=== PATIENT | female | born 1980 | race American Indian/Alaskan Native ===

== ENCOUNTER 2016-11-24 05:56 | Day surgery (SDC) | payer OTHER ==
--- NOTE | 2016-11-24 07:30 | Anesthesia Consultation ---
Anesthesia Consult and Med Hx Date of service: 11/24/16 - Airway Anesthetic Teeth Evaluation: Good ROM Head & Neck: Adequate Mental/Hyoid Distance: Adequate Mallampati Class: Class III Intubation Access Assessment: Possibly Difficult - Pre-Operative Health Status ASA Pre-Surgery Classification: ASA3 Proposed Anesthetic Plan: MAC - Pulmonary Hx Smoking: Yes (STOPPED 2012) Hx Sleep Apnea: Yes (CPAP) - Cardiovascular System Hx Hypertension: Yes Hx Cardia Arrhythmia: Yes (h/o atrial fibrillation) - Endocrine Hx Non-Insulin Dependent Diabetes: Yes (prediabetic) - Other Systems Hx Obesity: Yes (Morbid, BMI 52.5)
--- NOTE | 2016-11-24 07:30 | Anesthesia Day of Surgery ---
Anesthesia Day of Surgery - Day of Surgery Patient Examined: Yes Patient H&P Reviewed: Yes Patient is NPO: Yes
[2016-11-24] MEDS ORDERED: DIPRIVAN 10 MG/ML IV ONE ×2 (07:39)
--- NOTE | 2016-11-24 07:56 | Discharge Summary ---
Providers - Providers Date of discharge: 11/24/16 Attending physician: SUMA LOGAN Hospitalization Condition: Good Procedures: egd Disposition: DC- TO HOME OR SELFCARE Core Measure Documentation - Palliative Care Palliative Care/ Comfort Measures: Not Applicable - Core Measures Any of the following diagnoses?: none Exam - Physical Exam Narrative exam: unchanged from pre-op - Constitutional Vitals: Temp Pulse Resp BP Pulse Ox 98.4 F 76 17 111/58 99 11/24/16 07:33 11/24/16 07:33 11/24/16 07:33 11/24/16 07:33 11/24/16 07:33 Plan Activity: no restrictions Weight Bearing Status: Full Weight Bearing Diet: regular
--- NOTE | 2016-11-24 07:59 | Operative Report ---
Operative Report Operative Report: OPERATIVE REPORT - EGD DATE 11/24/16 SURGERY: Upper endoscopy. SURGEON: Nikky Barth M.D. ELECTRONIC MUSICAL INSTRUMENT REPAIRER: n/a PRE OP DX: dyspepsia POST OP DX:hiatal hernia TYPE OF ANESTHESIA: MAC. ESTIMATED BLOOD LOSS: None. COMPLICATIONS: None. SPECIMENS REMOVED: None. FINDINGS: 1. Small hiatal hernia. 2. Otherwise, normal esophagus, stomach and first portion of duodenum. INDICATIONS:INDICATION FOR PROCEDURE: Patient is a 36-year-old female with a long history of morbid obesity and has dyspepsia, here today looking for an pathology that would prohibit her upcoming bariatric surgery. She is planned to have a weight loss procedure and is here for preoperative planning EGD. PROCEDURE DETAILS: After consent was reviewed, patient was taken back to the operating room where patient was placed in the left lateral decubitus position and a bite block was placed in the mouth. After a time-out was called, MAC anesthesia was initiated. I then passed the endoscope into her oropharynx, into her esophagus, visualized the entire esophagus, which was all within normal limits. I then visualized the stomach and the first portion of the duodenum and there were no abnormalities I could clearly visualize. I then retroflexed the scope in the stomach and visualized the hiatus and I could see a small hiatal hernia. I then desufflated the stomach and removed the endoscope. Patient tolerated procedure well and was transferred to recovery room in good and stable condition.
[2016-11-24] MEDS ORDERED: NACL 0.9% 1000 ML 1,000 ML IV SCH (08:00)
[2016-11-24 08:40] VITALS: BP 118/57
--- NOTE | 2016-11-24 09:07 | Post Anesthesia Evaluation ---
- Post Anesthesia Evaluation Patient Participated: Yes Airway Patent: Yes Stable Respiratory Function: Yes Nausea/Vomiting: No Temp > 96.8F: Yes Pain Manageable: Yes Adequeate Hydration: Yes Anesthesia Complications: No Block Receding Appropriately: Not Applicable Patient on Ventilator: No
== END 2016-11-24 05:57 | disposition home or self-care (01) ==
LOC: GIO 05:56
PROVIDERS: ATTEND Surgery
DX: K44.9 Diaphragmatic hernia without obstruction or gangrene (principal); G47.30 Sleep apnea, unspecified; I10 Essential (primary) hypertension; I48.2 Chronic atrial fibrillation; D64.9 Anemia, unspecified; F32.9 Major depressive disorder, single episode, unspecified; E66.01 Morbid (severe) obesity due to excess calories; Z87.891 Personal history of nicotine dependence; Z68.43 Body mass index [BMI] 50.0-59.9, adult; Z72.89 Other problems related to lifestyle; Z98.51 Tubal ligation status; K08.409 Partial loss of teeth, unspecified cause, unspecified class; Z98.890 Other specified postprocedural states; Z79.899 Other long term (current) drug therapy; Z91.09 Other allergy status, other than to drugs and biological substances; Z82.49 Family history of ischemic heart disease and other diseases of the circulatory system
CPT/HCPCS: 43235; 81025; J2704; J7030

== ENCOUNTER 2016-11-28 07:30 | Inpatient (IN) | payer OTHER ==
[2016-11-28] MEDS ORDERED: PEPCID IV NR (08:00)
[2016-11-28] MEDS ORDERED: TRANSDERM-SCOP TD NR (08:00)
[2016-11-28] MEDS ORDERED: VERSED IV NR (08:00)
[2016-11-28] MEDS ORDERED: NACL 0.9% 1000 ML 1,000 ML IV SCH (08:00)
[2016-11-28] MEDS ORDERED: DILAUDID IV PRN ×2 (09:43→13:19)
[2016-11-28] MEDS ORDERED: APRESOLINE IV PRN (09:43)
[2016-11-28] MEDS ORDERED: REGLAN IV PRN (09:43)
[2016-11-28] MEDS ORDERED: NORCO PO PRN (09:43)
[2016-11-28] MEDS ORDERED: MORPHINE IV PRN (09:43)
[2016-11-28] MEDS ORDERED: DILTIAZEM 300 MG PO SCH (10:00)
[2016-11-28] MEDS ORDERED: LACTATED RINGERS 1,000 ML IV SCH (10:00)
[2016-11-28] MEDS ORDERED: LOVENOX SUB-Q SCH (10:00)
[2016-11-28] MEDS ORDERED: ANCEF/STERILE WATER 2 GM/20 ML 2 GM/20 ML SYRINGE IV NR (10:00)
[2016-11-28] MEDS ORDERED: HYDROCHLOROTHIAZIDE PO SCH (10:00)
[2016-11-28] MEDS ORDERED: TRIAMTERENE PO SCH (10:00)
[2016-11-28] MEDS ORDERED: FLAGYL 500 MG/100 ML 500 MG/100 ML BAG IV NR (10:00)
[2016-11-28] MEDS ORDERED: LOVENOX SUB-Q NR (11:00)
--- NOTE | 2016-11-28 13:24 | Anesthesia Day of Surgery ---
Anesthesia Day of Surgery - Day of Surgery Patient Examined: Yes Patient H&P Reviewed: Yes Patient is NPO: Yes
--- NOTE | 2016-11-28 13:24 | Anesthesia Consultation ---
Anesthesia Consult and Med Hx Date of service: 11/28/16 - Airway Anesthetic Teeth Evaluation: Good ROM Head & Neck: Adequate Mental/Hyoid Distance: Adequate Mallampati Class: Class II Intubation Access Assessment: Probably Good - Pulmonary Exam CTA: Yes - Cardiac Exam Cardiac Exam: RRR - Pre-Operative Health Status ASA Pre-Surgery Classification: ASA3 Proposed Anesthetic Plan: MAC - Pulmonary Hx Smoking: Yes (STOPPED 2012, SMOKED 1 PACK PER WEEK) Hx Sleep Apnea: Yes (CPAP) - Cardiovascular System Hx Hypertension: Yes Hx Cardia Arrhythmia: Yes (h/o atrial fibrillation) - Endocrine Hx Non-Insulin Dependent Diabetes: Yes (prediabetic) - Other Systems Hx Obesity: Yes (Morbid, BMI > 40)
[2016-11-28] MEDS ORDERED: SUBLIMAZE ONE (13:52)
[2016-11-28] MEDS ORDERED: DIPRIVAN 10 MG/ML IV ONE (13:52)
[2016-11-28] MEDS ORDERED: CARDIZEM CD PO SCH (14:00)
[2016-11-28] MEDS ORDERED: MAXZIDE-25 PO SCH (14:00)
[2016-11-28 14:14] LABS: Basophils % (Auto) 0.5 % (0.0-1.8); Eosinophils % (Auto) 0.4 % (0.0-4.3); Hematocrit 40.5 % (30.3-42.9); Hemoglobin 13.5 gm/dl (10.1-14.3); Mean Corpuscular HGB Conc 33 % (30-34); Mean Corpuscular Hemoglobin 27 pg (28-32); Mean Corpuscular Volume 80 fl (79-97); Platelet Count 311 K/mm3 (140-440); Red Blood Count 5.06 M/mm3 (3.65-5.03); Red Cell Distribution Width 14.7 % (13.2-15.2); White Blood Count 11.5 K/mm3 (4.5-11.0)
[2016-11-28 14:18] LABS: Bilirubin,Urine NEG (Negative); Blood,Urine LG (Negative); Ketones,Urine TR mg/dL (Negative); Leukocyte Esterase,Urine SM (Negative); Mucus,Urine 2+ /HPF; Nitrite,Urine NEG (Negative)
[2016-11-28 14:21] LABS: RBC,Urine > 182.0 /HPF (0.0-6.0)
[2016-11-28 14:24] LABS: Anion Gap 19 mmol/L; Blood Urea Nitrogen 10 mg/dL (7-17); Calcium 9.1 mg/dL (8.4-10.2); Carbon Dioxide 26 mmol/L (22-30); Chloride 98.4 mmol/L (98-107); Glucose 75 mg/dL (65-100); Potassium 3.2 mmol/L (3.6-5.0); Sodium 140 mmol/L (137-145)
[2016-11-28] MEDS ORDERED: XYLOCAINE MPF 2% ONE (14:24)
[2016-11-28] MEDS ORDERED: XYLOCAINE 1% 20 mL ONE (14:28)
[2016-11-28] MEDS ORDERED: MARCAINE-EPI 0.5%-1:200,000 INFILTRATI ONE ×2 (14:28→15:28)
[2016-11-28] MEDS ORDERED: DECADRON ONE (15:12)
[2016-11-28] MEDS ORDERED: ROBINUL ONE ×2 (15:17→15:58)
[2016-11-28] MEDS ORDERED: NEOSTIGMINE ONE (15:17)
[2016-11-28] MEDS ORDERED: ZOFRAN ONE (15:21)
[2016-11-28] MEDS ORDERED: XYLOCAINE 1% 20 mL INFILTRATI ONE (15:28)
[2016-11-28] MEDS ORDERED: NACL 0.9% IR ONE (15:28)
[2016-11-28] MEDS ORDERED: DILAUDID ONE (15:38)
[2016-11-28] MEDS ORDERED: NACL 0.9% 1000 ML 1,000 ML ONE (15:45)
--- NOTE | 2016-11-28 16:05 | Operative Report ---
Operative Report Operative Report: Operative Report DATE OF PROCEDURE: 11/28/16 PREOPERATIVE DIAGNOSES: Morbid obesity, hiatal hernia POSTOPERATIVE DIAGNOSES: 1.same as pre-op SURGEON: Nikky Barth M.D. POLICE OFFICER CRIME PREVENTION: Andrew Bacon CSA PROCEDURE: 1. laparoscopic sleeve gastrectomy 2. laparoscopic hiatal hernia repair ANESTHESIA: General. ESTIMATED BLOOD LOSS: <5 mL. COMPLICATIONS: None. SPECIMEN: Partial gastrectomy. FINDINGS: 1. hiatal hernia INDICATION FOR PROCEDURE: Patient is a 36-year-old female with a long history of morbid obesity. She has tried multiple efforts at weight loss without dedicated intermodal truck driver success. She is here today for sleeve gastrectomy. PROCEDURE IN DETAIL: After consent was reviewed, patient was taken back to the operating room, where patient was placed supine on the bed with both arms out. The patient's legs were doubly strapped to the bed. Patient had a foot board in place. Patient had a body warmer placed by anesthesia. Patient was then prepped and draped in normal sterile surgical fashion. After a time-out was called, I made a stab incision in the LUQ and placed a Veress needle through this incision and insufflated the abdomen to 18 mmHg pressure. I then counted down a handsbreadth below the xiphoid process in the midline and slightly left lateral injected local anesthetic and made about 1.5 cm transverse incision. I then used a 5-mm Optiview trocar to enter into the abdomen. I then placed a 45- degree scope through this port and inspected the abdomen. There was no injury on entry of the abdomen. I then placed two 5-mm ports in the right upper quadrant, one along the anterior axillary line and 1 subxiphoid below the costovertebral angle. I then placed a 15-mm port about a handsbreadth left lateral and inferior to my anterior axillary port. I then placed left upper quadrant port along the anterior axillary line in a similar fashion. I then placed the liver retractor through the subxiphoid port and placed the patient in full reverse Trendelenburg. The right and left crura were skeletonized accentuating a small hiatal hernia. An anterior cruraplasty was perfromed with a figure-of-8 stitch using surgidac suture to reapproximate the crura. The stomach and distal 2cm of esophagus were resting in the abdomen without tension. I then identified the pylorus and then counted off 6cm from the pylorus. I then used a LigaSure cutting device to enter into the lesser sac. At that point and then I took down the short gastrics all the way up to the left radha. Then I had anesthesia pass down a 36-Georgian bougie along the lesser curvature of the stomach. I made sure everything else was out of the abdomen except the bougie. I then created my gastric sleeve using a 60-mm laparoscopic stapler. . The sleeve looked good without any twisting or torsion. I then had anesthesia to remove the bougie. Hemostasis was obtained along the staple line. I then used Tiseel along the entirety of the staple line and some on the liver. I then removed liver grasper and took it off the field. I then removed the stomach through the 15-mm port. I then closed that fascia with a #1 PDS in a [id number] fashion using a Joel-Rubén. I then desufflated the abdomen and then removed all port sites. I then closed the incisions with 4-0 Monocryl in subcuticular fashion. I then dressed the wounds with Dermabond. Patient tolerated the procedure well and was transferred to recovery room in good and stable condition.
[2016-11-28] MEDS: TORADOL IV SCH ×2 (16:51→22:39)
[2016-11-28] MEDS: MYLICON PO PRN (17:35)
--- NOTE | 2016-11-28 19:00 | Admit Criteria Form ---
Admission Criteria Documentation: AMBULATORY SURGERY EXCEPTION CRITERIA Ambulatory Surgery Exception Criteria ( Place 'X' for any and all applicable criteria): Surgery or procedure performed on ambulatory basis may require inpatient stay for[A] ANY ONE of the following(1)(2)(3)(4)(5)(6)(7)(8)(9): [X] I. A preoperative situation, condition, or finding that warrants inpatient stay as indicated by ANY ONE of the following: [] a) Inpatient care needed because of severity of a disease or condition rather than the surgery (eg, severe cardiac or respiratory disease, severe infection) (15) (16 ) (17) (18) [] b) Emergent procedure (eg, angioplasty for acute ischemia)(19) [] c) Complex surgical approach or situation as indicated by ANY ONE of the following(3): [] i) Open approach needed instead of usual endoscopic, transcatheter, or other less invasive procedure [] ii) Difficult approach because of previous operation [] iii) Airway monitoring required after open neck procedures(20)(21) [] iv) Large mass requiring unusually extensive dissection [] v) Additional complicating feature requiring inpatient care (eg, drain management)(22(23): [X] d) Major surgery in a pt with high anesthetic risk as indicated by ANY ONE of the following (2)(3)(5)(7)(8): [X] i) ASA risk class III or higher (severe systemic disease impairing function) [D] [] ii) Advanced age (eg, older than 85 years)(14)(24) [] iii) Symptomatic heart failure(25) [] iv) Symptomatic asthma or COPD(8)(21) [] v) Morbid obesity with hemodynamic or respiratory problems(20)( 21)(26)(27) [] vi) Obstructive sleep apnea(20)(21) [] vii) Former premature infants who are younger than 60 weeks [] viii) High risk for severe postoperative abnormalities (eg, severe postoperative hypocalcemia after parathyroidectomy for severe hyperparathyroidism)(27)( 28) [] ix) Unstable angina(25) [] e) Drug-related risk requiring inpatient stay as indicated by ANY ONE of the following(5)(10)(14)(32)(33) [] i) Procedure requires discontinuing drugs or other therapy (eg , antiarrhythmic medication, antiseizure medication), which necessitates inpatient observation or treatment.(18)(31) [] ii) Major surgery and high risk drug use as indicated by ANY ONE of the following: [] 1) Active abuse of cocaine or similar drug [] 2) Monoamine oxidase inhibitor use [] 3) Other drug identified as posing risk [] f) Inadequate outpatient care situation as indicated by ANY ONE of the following(5)(10)(14)(32)(33) [] i) Patient lives remote from medical facility and procedure has urgent complication potential, and temporary nearby residence cannot be arranged [] ii) Patient will have postprocedure incapacitation and inadequate assistance at home, or alternative level of care cannot be arranged. [] iii) Patient will have long general anesthesia or procedure side effect resolution time, and competent person to stay with patient on first postoperative night at home or alternative level of care cannot be arranged. []iv) Other inadequate outpatient situation that cannot be handled by other means [] II. A perioperative event, condition, or finding that warrants inpatient stay as indicated by ANY ONE of the following (1)(2)(3): [] a) Inadequate physiologic recovery: cardiovascular, respiratory, or hemodynamic status not normal or near preoperative baseline(18) [] b) Hemodynamic instability [] c) Patient not alert with near normal or baseline mental status [] d) Temperature not normal or as expected and not appropriate for outpatient treatment of condition [] e) Ambulatory or appropriate activity level status not yet achieved post procedure [E](34)(35)(36) [] f) Operative site not appropriate (eg, unexpected or excessive drainage or bleeding) [] g) Postoperative effects not resolved or adequately managed (eg, significant pain or vomiting not appropriate for outpatient or next level of care)(10)(12) [] h) Complicating features requiring inpatient care as indicated by ANY ONE of the following(37): [] i) Severe complications of procedure (eg, bowel injury, airway compromise, vascular injury,severe hemorrhage) [] ii) Extensive (eg, dissection far beyond usual scope of procedure ) or prolonged (eg, 120 minutes beyond usual) surgery needed requiring inpatient postoperative care [] iii) Conversion to an open or complex procedure that requires inpatient care (eg, open vs laparoscopic cholecystectomy, abdominal vs vaginal hysterectomy)(38) [] iv) Comorbid condition or test result identified during or post procedure that requires inpatient care (7) [] v) Malignant hyperthermia(30) [] vi) Other complicating feature requiring inpatient care(22)(23) Inpatient stay may be needed until ALL of the following are present (1)(2)(3)(4) (5)(6)(10)(14)(33)(40): []a) Physiologic recovery: cardiovascular, respiratory, and hemodynamic status normal or near preoperative baseline []b) Hemodynamic stability []c) Patient alert, with near normal or baseline mental status []d) Temperature appropriate: patient afebrile or temperature appropriate for outpt treatment of condition []e) Activity level appropriate: ambulatory or appropriate activity level post procedure []f) Operative site appropriate as indicated by ALL of the following: []i) Site dry or with expected drainage []ii) Any blood noted is as expected for procedure. []g) Postoperative effects resolved or managed as indicated by ALL of the following: []i) Pain management appropriate for outpatient (or next level of) care(10) []ii) Minimal nausea and vomiting: if present, successfully treated with oral medication(12) []iii) Headache, dizziness, or drowsiness (if present) are mild. []h) Voiding status acceptable as indicated by ANY ONE of the following: []i) Voiding spontaneously []ii) No voiding but instructions given for follow-up in 6 to 8 hours []iii) Urinary catheter in place, and instructions given for follow-up []i) Complicating features requiring inpatient care manageable at a lower level of care(37) []j) Comorbid conditions manageable at a lower level of care(37) The original [employer] content created by [employer] has been revised. The portions of the content which have been revised are identified through the use of italic text or in bold, and [facility] [employer] (acquired by [employer] has neither reviewed nor approved the modified material. All other unmodified content is copyright [employer]. Please see references footnoted in the original [employer] edition 2016 Admission Criteria Met: Yes
[2016-11-28] MEDS: ANCEF/NS 1 GM/50 ML 1 GM/50 ML BAG IV SCH (20:42)
[2016-11-28] MEDS: ZOFRAN IV PRN (20:43)
[2016-11-28] MEDS: FLAGYL 500 MG/100 ML 500 MG/100 ML BAG IV SCH (21:51)
[2016-11-29] MEDS: TORADOL IV SCH ×3 (03:32→10:02)
[2016-11-29] MEDS: ANCEF/NS 1 GM/50 ML 1 GM/50 ML BAG IV SCH (03:37)
[2016-11-29] MEDS: ZOFRAN IV PRN (03:41)
[2016-11-29 03:54] LABS: Hematocrit 39.2 % (30.3-42.9); Hemoglobin 13.3 gm/dl (10.1-14.3); Mean Corpuscular HGB Conc 34 % (30-34); Mean Corpuscular Hemoglobin 28 pg (28-32); Mean Corpuscular Volume 81 fl (79-97); Platelet Count 286 K/mm3 (140-440); Red Blood Count 4.82 M/mm3 (3.65-5.03); Red Cell Distribution Width 15.3 % (13.2-15.2); White Blood Count 10.4 K/mm3 (4.5-11.0)
[2016-11-29 03:57] LABS: Basophils % (Auto) 1.3 % (0.0-1.8); Eosinophils % (Auto) 0.8 % (0.0-4.3)
[2016-11-29 04:12] LABS: Albumin 3.7 g/dL (3.9-5); Alkaline Phosphatase 74 units/L (35-129); Anion Gap 23 mmol/L; BUN/Creatinine Ratio 15.71; Blood Urea Nitrogen 11 mg/dL (7-17); Calcium 8.8 mg/dL (8.4-10.2); Carbon Dioxide 20 mmol/L (22-30); Chloride 97.8 mmol/L (98-107); Glucose 131 mg/dL (65-100); Potassium 4.4 mmol/L (3.6-5.0); Sodium 136 mmol/L (137-145); Total Protein 7.5 g/dL (6.3-8.2)
[2016-11-29 04:26] LABS: Alanine Aminotransferase 26 units/L (7-56)
[2016-11-29 08:57] VITALS: BP 116/69
[2016-11-29] MEDS: MYLICON PO PRN (09:52)
[2016-11-29] MEDS: FLAGYL 500 MG/100 ML 500 MG/100 ML BAG IV SCH (09:55)
--- NOTE | 2016-11-29 17:16 | Discharge Summary ---
Providers - Providers Date of Admission: 11/28/16 09:20 Date of discharge: 11/29/16 Attending physician: SUMA LOGAN Primary care physician: MEDICAL IMAGING TECHNOLOGIST Hospitalization Condition: Good Hospital course: 36 F admitted to hospital for lap sleeve gastrectomy and hiatal hernia repair. She underwent surgery without complications.She did well post op. On POD 1 she tolerated liquids and her pain was controlled. Prior to discharge she denies vomiting. Disposition: DC-01 TO HOME OR SELFCARE Core Measure Documentation - Palliative Care Palliative Care/ Comfort Measures: Not Applicable - Core Measures Any of the following diagnoses?: none Exam - Physical Exam Narrative exam: VSS Gen: A+Ox3 CARdio: RRR Lungs CTA BL Abd: soft obese, tender at incision sites, incision sites cdi. ext: no c/c/e - Constitutional Vitals: Temp Pulse Resp BP Pulse Ox 98.1 F 54 L 20 116/69 97 11/29/16 08:55 11/29/16 08:55 11/29/16 10:21 11/29/16 08:55 11/29/16 08:55 Plan Activity: other (no lifting >15lbs for 6 weeks ) Diet: other (clears, no carb) Follow up with: PRIMARY CARE, [Primary Care Provider] - 7 Days
== END 2016-11-29 14:23 | disposition home or self-care (01) | DRG 327 ==
LOC: 3A 09:20 → 2B-SURG 17:03
PROVIDERS: ADMIT Surgery; ATTEND Surgery
PROC: 0DB64Z3 Excision of Stomach, Percutaneous Endoscopic Approach, Vertical (ICD-10-PCS; principal; 2016-11-28)
PROC: 0BQS4ZZ (ICD-10-PCS; 2016-11-28)
PROC: 0BQR4ZZ (ICD-10-PCS; 2016-11-28)
DX: K44.9 Diaphragmatic hernia without obstruction or gangrene (principal); Z68.43 Body mass index [BMI] 50.0-59.9, adult; E66.01 Morbid (severe) obesity due to excess calories; I10 Essential (primary) hypertension; I48.2 Chronic atrial fibrillation; F32.9 Major depressive disorder, single episode, unspecified; R06.02 Shortness of breath; K30 Functional dyspepsia; E11.9 Type 2 diabetes mellitus without complications; G47.30 Sleep apnea, unspecified; Z83.3 Family history of diabetes mellitus; Z82.49 Family history of ischemic heart disease and other diseases of the circulatory system; Z91.048 Other nonmedicinal substance allergy status
CPT/HCPCS: 36415; 80048; 80053; 81001; 81025; 82962; 85025; 88307; 94760; C9250; J0690; J1100; J1170; J1650; J1885; J2250; J2270; J2405; J2704; J2710; J3010; J7030; J7120